=== PATIENT | male | born 1990 | race Caucasian/White ===

== ENCOUNTER 2018-11-28 05:45 | Emergency (ER) | payer MEDICAID ==
[~2018-11-28] VITALS: Ht 162.6 cm; Wt 68.0 kg
[2018-11-28 05:50] VITALS: BP 113/78
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
[2018-11-28 06:15] VITALS: BP 113/78
--- NOTE | 2018-11-28 06:15 | NUR ---
PATIENT MEDICALLY CLEARED AND RELEASED IN CUSTODY IN STABLE CONDITION. ORIGINAL PRE-BOOK FORM GIVEN TO OFFICER NILSA #[id number].
== END 2018-11-28 06:15 ==
LOC: MED 05:45
DX: L03.115 Cellulitis of right lower limb (principal); F17.200 Nicotine dependence, unspecified, uncomplicated; Z02.89 Encounter for other administrative examinations
CPT/HCPCS: 99283

== ENCOUNTER 2021-11-28 16:20 | Emergency (ER) | payer MEDICAID, OTHER ==
[~2021-11-28] VITALS: Ht 162.6 cm; Wt 63.5 kg
[2021-11-28 16:32] VITALS: BP 131/79
[2021-11-28] MEDS ORDERED: DEXAMETHASONE 10 MG/ML VIAL IVP ONE (18:00)
[2021-11-28] MEDS ORDERED: LIDOCAINE MPF 1% 10 MG/ML VIAL INJ ONE (18:00)
[2021-11-28] MEDS ORDERED: BENZOCAINE 20% 57 GM CAN MC ONE (18:00)
[2021-11-28] MEDS ORDERED: KETOROLAC 15 MG/ML VIAL IVP ONE (18:00)
[2021-11-28] MEDS ORDERED: AMPICILLIN/SULBACTAM 3 GM in NACL 0.9% 100 ML IV ONE (18:00)
--- NOTE | 2021-11-28 18:20 | NUR ---
PT AMBULATED TO ER BED 4
[2021-11-28] MEDS ORDERED: AMPICILLIN/SULBACTAM 3 GM VIAL ONE (18:37)
--- NOTE | 2021-11-28 18:39 | NUR ---
20G IV CATH PLACED IN L AC. PT IS ON MONITOR
--- NOTE | 2021-11-28 19:00 | NUR ---
ER MD AT BEDSIDE FOR PROCEDURE
--- NOTE | 2021-11-28 19:11 | NUR ---
REPORT GIVEN TO ARSALAN HSU
[2021-11-28] MEDS ORDERED: PRED20TA5 PO (19:53)
[2021-11-28] MEDS ORDERED: AMOX-1230 PO (19:53)
[2021-11-28] MEDS ORDERED: IBUP-2213 PO (19:53)
--- NOTE | 2021-11-28 20:07 | NUR ---
1943- AT BEDSIDE PERFORMING PROCEDURE
--- NOTE | 2021-11-28 20:36 | NUR ---
2001- 31 YO MALE BIB SELF FOR THROAT PAIN, AFTER ASSESSMENT. PT HAS ABSESS ON TONSIL. PT STATES THAT IT BECAME HARD TO BREATH BECAUSE THE ABCESS HAD MUCUS AND IT WAS PAINFUL. PT ATTE NO FEVER /VMOOTING/ DIARRHEA. PT STATES THIS IS THE SECOND INSTANCE OF THE ABSCESS, PT STATES PAIN 10/10. PT IS A&0X4, WITH STEADY AND EVEN GAIT. HI SNORTS METH PT IS HOMELESS BUT IS RECIEVING CARE AT A HALF-WAY HOUSE.
[2021-11-28 20:43] VITALS: BP 115/67
== END 2021-11-28 20:43 | disposition home or self-care (01) ==
LOC: MED 16:20
DX: J36 Peritonsillar abscess (principal); F17.210 Nicotine dependence, cigarettes, uncomplicated; Z79.899 Other long term (current) drug therapy
CPT/HCPCS: 42700; 96365; 96375; 99284; J0295; J1100; J1885; J2001

== ENCOUNTER 2021-12-01 02:53 | Emergency (ER) | payer OTHER ==
[~2021-12-01] VITALS: Ht 162.6 cm; Wt 63.5 kg
[~2021-12-01 02:53] MED LIST: AMOX-1230 PO; IBUP-2213 PO; PRED20TA5 PO
[2021-12-01 02:58] VITALS: BP 117/66
--- NOTE | 2021-12-01 03:34 | NUR ---
Dr. Giles examining patient.
[2021-12-01] MEDS ORDERED: cefTRIAXone 1,000 MG in LIDOCAINE MPF 1% 2.1 ML IM ONE (03:40)
[2021-12-01] MEDS ORDERED: KETOROLAC 60 MG/2 ML VIAL IM ONE (03:40)
[2021-12-01] MEDS ORDERED: cefTRIAXone 1,000 MG VIAL ONE (03:42)
[2021-12-01] MEDS ORDERED: LIDOCAINE MPF 1% 5 ML ONE (03:42)
[2021-12-01] MEDS ORDERED: AMOX1TAB8 PO (04:37)
[2021-12-01 04:43] VITALS: BP 126/72
--- NOTE | 2021-12-01 04:43 | NUR ---
Patient discharged with v/s stable. Written and verbal after care instructions given and explained for Pharyngitis. Patient alert, oriented and verbalized understanding of instructions. Ambulatory with steady gait. All questions addressed prior to discharge. ID band removed. Patient advised to follow up with PMD. Rx of Amox-Clav given. Patient educated on indication of medication including possible reaction and side effects. Opportunity to ask questions provided and answered.
== END 2021-12-01 04:43 | disposition home or self-care (01) ==
LOC: MED 02:53
DX: J02.9 Acute pharyngitis, unspecified (principal); R05.9 Cough, unspecified; R50.9 Fever, unspecified; F17.210 Nicotine dependence, cigarettes, uncomplicated; Z71.6 Tobacco abuse counseling
CPT/HCPCS: 96372; 99284; J0696; J1885; J2001